=== PATIENT | female | born 1955 | race Caucasian/White ===

== ENCOUNTER 2023-05-14 13:28 | Emergency (ER) | payer MEDICARE, BC, SELFPAY ==
[2023-05-14 13:30] VITALS: BP 146/93; PULSE 96; RESP 18; TEMP 36.3; O2SAT 98; BMI 31.4
--- NOTE | 2023-05-14 14:22 | RAD_ITS ---
INDICATION: Hypertension EXAMINATION/TECHNIQUE: X-RAY - portable upright AP chest x-ray COMPARISON: None. FINDINGS: LINES/DEVICES: None. LUNGS: No consolidation, edema or effusion. No pneumothorax. MEDIASTINUM AND CARDIOVASCULAR STRUCTURES: Cardiac silhouette not enlarged. Central airways and mediastinal contour are unremarkable. BONES AND SOFT TISSUES: Unremarkable. RAD/Chest 1 View (Portable) IMPRESSION: No radiographic evidence of acute cardiopulmonary disease. Electronically Signed: Nilay Decker MD at 17:19 EDT ,
[2023-05-14 14:38] LABS: Bacteria 0 SEEN /hpf (None Seen); Mucous, Urine 0 SEEN /hpf (<or=2+); Red Blood Cells-Urine 0 SEEN /hpf (0-5)
[2023-05-14 14:39] LABS: Color, Urine Yellow (Yellow); Glucose, Dipstick Normal (Normal); Ketone-Dipstick Negative (Negative); Leukocyte Esterase-Dipstick 100 /ul (Negative); Nitrite-Dipstick Negative (Negative); Occult Blood-Urine 10 /ul (Negative); Protein-Dipstick Negative (Negative); Urine Bilirubin Dipstick Negative (Negative); Urine Clarity Clear (Clear); Urine Urobilinogen Normal (Normal); Urine pH 6.5 (5.0 - 8.0)
[2023-05-14 14:45] LABS: Squamous Epithelial Cells - UA 0-5 SEEN /hpf (5-10); White Blood Cells 0-5 SEEN /hpf (0-5)
[2023-05-14 14:48] LABS: Absolute Lymphocyte Count 2.41 X10^3/uL (0.83-4.51); Absolute Neutrophil Count 5.2 X10^3/uL (2.0-7.7); Basophil# 0.04 X10^3/uL; Basophil% 0.5 % (0-1); Eosinophil# 0.16 X10^3/uL; Eosinophils% 1.9 % (0-5); Hematocrit 45.3 % (37-47); Hemoglobin 15.4 g/dL (12.0-15.0); Lymphocyte # 2.41 X10^3/ul (0.83-4.51); Lymphocyte % 28.5 % (19-41); Mean Corpuscular Volume 91.3 fL (81-99); Mean Platelet Vol. 9.9 fl (6.2-12.0); Monocyte# 0.56 X10^3/uL; Monocyte% 6.6 % (0-10); NRBC Flagged by Analyzer 0 % (0-5); Neutrophil # 5.24 X10^3/uL (2.7-7.7); Neutrophil % 61.9 % (47-70); Platelet Count 164 K/mm3 (150-450); RBC Distribution Width CV 13.5 % (11.6-14.6); RBC Distribution Width SD 45.5 fl (35.1-43.9); Red Blood Count 4.96 M/mm3 (4.2-5.4); White Blood Count 8.5 K/mm3 (4.4-11.0)
--- NOTE | 2023-05-14 15:00 | EKG12_ITS ---
Test Reason : Blood Pressure : / mmHG Vent. Rate : 076 BPM Atrial Rate : 076 BPM P-R Int : 140 ms QRS Dur : 096 ms QT Int : 426 ms P-R-T Axes : 042 -40 042 degrees QTc Int : 479 ms Poor data quality, interpretation may be adversely affected Normal sinus rhythm Left axis deviation Abnormal ECG No previous ECGs available Confirmed by NICKI LEVY, DARON ([id number]), managing editor SEJAL LU ([id number]) on 05/24/2023 1:56:24 PM Referred By: AVELINO Confirmed By:DARON CACERES MD
[2023-05-14 15:02] LABS: Anion Gap 2 (5-15); BUN 13 mg/dL (7-18); BUN/Creat Ratio 12.9 RATIO (10-20); Calcium,Total 9.5 mg/dL (8.5-10.1); Chloride 107 mmol/L (98-107); Creatinine, Serum 1.01 mg/dL (0.55-1.02); EST Glomerular Filtration Rate 58 mL/min (>60); Est Glom Filt Rate - Afr Amer 71 mL/min (>60); Estimated Creatinine Clearance 47.95 ml/min; Glucose 99 mg/dL (74-106); Potassium 3.8 mmol/L (3.5-5.1); Sodium Level 140 mmol/L (136-145)
--- NOTE | 2023-05-14 15:19 | EDS_ITS ---
HPI History of Present Illness Chief Complaint: Hypertension Narrative Narrative: 67-year-old female presenting with elevated blood pressures at home. She states been over the last 5 days. Blood pressures have been as high as 148 systolic. Patient is on hydrochlorothiazide 25 mg p.o. daily. Has been on this for years. She states that she is having some intermittent chest pressure over this timeframe which last for couple of hours at a time. She denies lightheadedness, dizziness, shortness of breath, nausea. She has no cardiac history she states. No lung problems. She is a non-smoker. She has not had fevers or chills. No history of DVT/PE and no risk factors. PFSH PFSH Home Medications levothyroxine 25 mcg tablet 25 mcg PO DAILY 03/29/17 [History Last Taken 03/29/17] Allergy/AdvReac Type Severity Reaction Status Date / Time zolmitriptan [From Zomig] Allergy Hives Verified 05/14/23 13:30 Social History Smoking Status: Never smoker ROS ROS ED Constitutional Constitutional ED: Denies chills, fever(s) or sweats Eyes Eyes: Denies blurry vision or change in vision ENT ENT ED: Denies ear pain or sore throat Cardiovascular Cardiovascular: Reports chest pain; Denies palpitations or racing heartbeat Respiratory/Chest Respiratory/Chest: Denies cough, dyspnea or sputum Gastrointestinal Gastrointestinal: Denies abdominal pain, constipation, diarrhea, nausea or vomiting Genitourinary Genitourinary ED: Denies dysuria, hematuria or urinary frequency Musculoskeletal Musculoskeletal: Denies arthralgias, myalgias or neck pain Integumentary Denies abscess, Abrasions or rash Neurologic Neurologic: Denies headache(s), paresthesias or weakness Psychiatric Psychiatric: Denies anxiety, depression, suicidal ideation or suicidal thoughts Endocrine Endocrinology: Denies polydipsia or polyuria EXAM Physical Exam Const Vital Signs: 05/14/23 13:30 05/14/23 13:28 Temperature 97.4 F L Temperature Source Temporal Pulse Rate 96 Respiratory Rate 18 Respiratory Effort Normal Respiratory Pattern Normal Blood Pressure 146/93 H Blood Pressure Mean 110 Pulse Ox 98 Oxygen Delivery Method Room Air Positive well nourished General Appearance ED: NAD; Negative for pallor HEENT Reports moist mucous membranes Eyes PERRL Chest Wall inspection of chest normal Resp normal respiratory effort and clear to auscultation bilaterally Auscultation: Negative for rales, rhonchi or wheezes Cardio regular rate and regular rhythm GI normal to inspection, nondistended, normoactive bowel sounds Neuro oriented x3 and CN's II-XII intact bilaterally Sensorium / Orientation: alert Motor Exam: strength 5/5 throughout Psych mental status grossly normal Skin no rashes or lesions noted General Skin Exam: Negative for jaundice or pallor MDM MDM MDM Narrative Medical decision making narrative: 67-year-old female presenting with chest pain. HEART score of 3. Differential includes but is not limited to ACS, PE, aortic dissection, pneumonia, pneumothorax, muscle strain, costochondritis, hypertension, UTI. Patient is PERC negative. She is not having ripping tearing sensation. She has equal symmetric breath sounds and chest wall rise which makes pneumothorax unlikely. We will obtain a CBC to assess white blood cell count, hemoglobin, platelets. BMP to assess renal function and electrolytes. High-sensitivity troponin and EKG to assess for ischemia or dysrhythmia. Urinalysis to assess for UTI. Chest x-ray to rule out pneumonia. Patient has normal white blood cell count 5. Hemoglobin 15.4. Platelets are normal at 164. Creatinine normal at 1.01. Electrolytes unremarkable. High-sensitivity troponin is 4. Chest x-ray my interpretation shows no acute process. Urinalysis negative for UTI. EKG sinus rhythm with a ventricular rate of 76 bpm without sign of ischemic change or ectopy on my interpretation. I did call the physician on-call for Dr. Enamorado. After waiting about an hour I spoke with the patient about follow-up. She is good to keep a blood pressure diary and call the office to set up an appointment. If her physician should call after she leaves I will update them on her work-up. Patient is stable for discharge at this time. Impression: 1. Chest pain 2. Hypertension Lab Data Attestation: I reviewed the patient's lab results. Labs: Laboratory Results - last 24 hr 05/14/23 05/14/23 14:35 14:38 WBC 8.5 RBC 4.96 Hgb 15.4 H Hct 45.3 MCV 91.3 MCH 31.0 MCHC 34.0 RDW Std Deviation 45.5 H RDW Coeff of Raghu 13.5 Plt Count 164 MPV 9.9 Immature Gran % (Auto) 0.600 Neut % (Auto) 61.9 Lymph % (Auto) 28.5 [place] % (Auto) 6.6 Eos % (Auto) 1.9 Baso % (Auto) 0.5 Absolute Neuts (auto) 5.2 Absolute Lymphs (auto) 2.41 Nucleated RBC % 0 Sodium 140 Potassium 3.8 Chloride 107 Carbon Dioxide 31.0 Anion Gap 2 L BUN 13 Creatinine 1.01 Estim Creat Clear Calc 47.95 Est GFR (MDRD) Af Amer 71 Est GFR (MDRD) Non-Af 58 L BUN/Creatinine Ratio 12.9 Glucose 99 Calcium 9.5 Troponin I High Sens 4 Urine Color Yellow Urine Clarity Clear Urine pH 6.5 Ur Specific [place] 1.010 Urine Protein Negative Urine Glucose (UA) Normal Urine Ketones Negative Urine Occult Blood 10 H Urine Nitrite Negative Urine Bilirubin Negative Urine Urobilinogen Normal Ur Leukocyte Esterase 100 H Urine RBC 0 SEEN Urine WBC 0-5 SEEN Ur Squamous Epith Cells 0-5 SEEN Urine Bacteria 0 SEEN Urine Mucus 0 SEEN Discharge Plan Triage Chief Complaint: Hypertension ED Provider: Rai Blair Dx/Rx/DC Orders Instructions: ED Chest Pain, Noncardiac, ED Hypertension, Established Prescriptions: No Action levothyroxine 25 MCG tablet 25 mcg PO DAILY Primary Care Provider: Sylwia Enamorado Referrals: Sylwia Enamorado MD [Primary Care Provider] - Disposition Disposition: Home, Self Care
[2023-05-14 15:49] LABS: Troponin-I HS 4 pg/mL (3.0-54.0)
[2023-05-14 17:00] VITALS: BP 124/78; PULSE 97; RESP 14; TEMP 36.4; O2SAT 99
== END 2023-05-14 17:04 | disposition home or self-care (01) ==
PROVIDERS: Emergency Provider Student in an Organized Health Care Education/Training Program; PCP Internal Medicine; Visit Provider Student in an Organized Health Care Education/Training Program
DX: I10 Essential (primary) hypertension (principal); R07.9 Chest pain, unspecified; Z79.899 Other long term (current) drug therapy
CPT/HCPCS: 71045; 80048; 81001; 84484; 85025; 93005; 99283